=== PATIENT | female | born 2000 | race Hispanic/Latino ===

== ENCOUNTER 2020-02-02 08:01 | Emergency (ER) | payer OTHER, SELFPAY ==
--- NOTE | ~2020-02-02 | CT_ITS ---
EXAMINATION: CT abdomen pelvis w con DATE: 02/02/2020 10:13 INDICATION: Low back pain. Nausea. TECHNIQUE: Computed tomography (CT) of the abdomen and pelvis was performed with 100 cc Omnipaque 350 intravenous contrast. The dose-length product was 1119.15 mGy-cm. Automated exposure control and ite rative reconstruction technique were employed. COMPARISON: None. FINDINGS: Lung bases are unremarkable. Heart size normal. No significant pleural or pericardial effus ion. No significant vascular abnormality. No lymphadenopathy. Fatty infiltration of the liver. The spleen, pancreas, adrenal glands and kidneys are unremarkable. T here are gallstones. Mild gallbladder wall thickening. No significant biliary dilatation. No abnormal pelvic masses or fluid collections. No bowel obstruction. No evidence for appendicitis or diverticul itis. IMPRESSION: 1. Gallstones with gallbladder wall thickening. Consider cholecystitis in the appropriate clinical se tting. Reviewed, dictated and finalized at location A. IMPRESSION: 1. Gallstones with gallbladder wall thickening. Consider cholecystitis in the a ppropriate clinical setting.
[2020-02-02 08:07] VITALS: BP 122/89; PULSE 81; RESP 18; TEMP 36.2; O2SAT 99
--- NOTE | 2020-02-02 09:09 | ED.BACK ---
HPI - Back Pain/Injury General Chief Complaint: Back Pain/Injury Stated Complaint: back pain Time Seen by Provider: 02/02/20 08:14 Source: patient Mode of arrival: ambulatory Limitations: no limitations History of Present Illness HPI Narrative: This patient is a 19 year old female who presents for evaluation of bilateral lower back pain. She states this morning she woke up with bilateral lower back. She was unable to get comfortable no matter what position she is in. She has not taken anything for her pain. She has some nausea and upper abdominal pain. She denies urinary symptoms or complaints. MD elicited complaint: back pain Onset (ago): hour(s) Timing: constant Pain scale (0-10): 7 Similar Symptoms Previously: No Quality: dull Location: lumbar spine Relieving factors: none Context: unknown Associated symptoms: abdominal pain Related Data Allergies Allergy/AdvReac Type Severity Reaction Status Date / Time No Known Allergies Allergy Unknown Verified 02/02/20 08:10 Review of Systems Review of Systems: All systems reviewed & are unremarkable except as noted in HPI and below Constitutional: Constitutional: Denies chills and Denies fever(s) Gastrointestinal: Gastrointestinal: Reports abdominal pain, Denies constipation, Denies diarrhea, Reports nausea and Denies vomiting Genitourinary: Genitourinary: Denies hematuria, Denies nocturia, Denies dysuria and Denies urinary incontinence Musculoskeletal: Musculoskeletal: Reports back pain PMFSH Past Medical History Medical History (Updated 02/02/20 @ 13:21 by Courtney Fuentes CMA) GERD (gastroesophageal reflux disease) High cholesterol Surgical History Surgical History (Updated 02/02/20 @ 09:10 by Tayler Gilliland MD) Hx of tonsillectomy Family History Family History (Updated 02/02/20 @ 13:22 by Courtney Fuentes CMA) Father High cholesterol Grandparent Heart disease Diabetes mellitus Social History Social History (Updated 02/02/20 @ 13:23 by Courtney Fuentes CMA) Tobacco type: e-cigarettes/vaping Alcohol intake: current Substance use: never Living arrangements: with family Occupation/Education: occupation 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 HEAD: Normocephalic, atraumatic EYES: PERRLA and EOMI, conjunctiva clear without discharge THROAT:Mucous membranes moist, Oropharynx normal without erythema, exudate, peritonsillar swelling or fluctuance NECK: Supple, without lymphadenopathy or mass RESPIRATORY: No respiratory distress, Airway patent, Respirations non-labored, Clear to auscultation without rales, rhonchi or wheeze HEART: Regular rate and rhythm. No murmur heard. Normal peripheral pulses. ABDOMEN: Soft, RUQ, epigastric, nondistended, normal active bowel sounds. No masses. No rebound or guarding, No organomegaly. EXTREMITIES: No edema, normal strength with full range of motion. SKIN: Warm, dry, normal color without rash NEURO: Alert and oriented x3. CN 2-12 grossly intact. No focal deficits. PSYCH: Normal mood and affect. Course Reevaluation(s) Reevaluation #1: I have discsussed with patient and she reports she feels better. She is agreeable to outpatient management of her symptoms. Date: 02/02/20 Time: 11:36 Consultations Consultation #1: I have discussed case with DR. Grayson who agrees patient can be discharged on Augmentin for outpatient management. He will follow up as outpatient. Date: 02/02/20 Time: 11:36 Vital Signs Vital signs: Vital Signs Temperature 97.2 F L 02/02/20 08:07 Pulse Rate 81 02/02/20 08:07 Respiratory Rate 18 02/02/20 08:07 Blood Pressure 122/89 02/02/20 08:07 Pulse Oximetry 99 02/02/20 08:07 Temperature 97.2 F L 02/02/20 08:07 Pulse Rate 78 02/02/20 11:52 Respiratory Rate 1
[2020-02-02 09:14] LABS: Basophils Absolute Auto 0.1 K/mm3 (0.0-0.1); Basophils Percent Auto 0.3 % (0.2-1.2); Eosinophils Absolute Auto 0.2 K/mm3 (0-0.3); Eosinophils Percent Auto 1.4 % (0-4.4); Hematocrit 41.1 % (37.0-47.0); Hemoglobin 13.6 g/dL (12.0-15.0); Immature Granulocyte Absolute 0.05 K/mm3 (0.00-0.031); Immature Granulocyte Percent A 0.3 % (0-0.5); Lymphocytes Percent Auto 19.6 % (18.3-44.2); Mean Corpuscular HGB Conc 33.1 g/dl (32-36); Mean Corpuscular Hemoglobin 30.8 pg (26-34); Monocytes Absolute Auto 1.1 K/mm3 (0.1-0.6); Monocytes Percent Auto 7.2 % (2.6-8.5); Neutrophils Absolute Auto 10.9 K/mm3 (1.3-6.7); Neutrophils Percent Auto 71.2 % (45.5-73.1); Platelet Count Result 309 k/mm3 (150-375); Red Blood Count 4.42 M/mm3 (4.2-5.4); Red Cell Distribution Width 12.3 % (11.5-14.5); White Blood Count 15.3 K/mm3 (4.5-10.0)
[2020-02-02 09:14] LABS: Add Urine Microscopic? YES; Appearance Urine Clear (Clear); Bacteria Urine Trace /hpf; Bilirubin Urine Negative (Negative); Blood Urine Negative (Negative); Color Urine Yellow (Yellow); Glucose Urine UA Negative (Negative); Ketones Urine Negative (Negative); Leukocyte Esterase Ur 1+ LEU/UL (Negative); Mucus Urine Few /lpf; Nitrate Urine Negative (Negative); Protein Urine Negative (Negative); Specific Grav Ur 1.024 (1.001-1.035); Squamous Epithelial Cell Urine Many /hpf (Few); Urobilinogen Urine Negative mg/dL (<2.0)
[2020-02-02 09:28] LABS: Alanine Aminotransferase 49 U/L (4-35); Albumin Level 4.3 g/dL (3.7-5.6); Alkaline Phosphatase 92 U/L (45-116); Aspartate Amino Transferase 36 U/L (14-36); Bilirubin,Total 0.2 mg/dL (0.2-1.3); Blood Urea Nitrogen 11 mg/dL (8-21); Calcium 8.6 mg/dL (8.9-10.7); Carbon Dioxide 25 mmol/L (22-30); Chloride 106 mmol/L (98-107); Estimated CRCL calculation 135 ml/min; Estimated Glomerular Filt Rate > 60; Glucose 104 mg/dL (65-105); Lipase 30 U/L (23-300); Potassium 4.3 mmol/L (3.4-5.0); Sodium 137 mmol/L (134-143)
[2020-02-02 10:50] VITALS: BP 133/75; PULSE 84; RESP 18; O2SAT 100
[2020-02-02 11:52] VITALS: BP 129/65; PULSE 78; RESP 16; O2SAT 98
== END 2020-02-02 11:55 | disposition home or self-care (01) ==
PROVIDERS: Emergency Provider General Practice; PCP Physician Assistant
DX: K80.00 Calculus of gallbladder with acute cholecystitis without obstruction (principal); K21.9 Gastro-esophageal reflux disease without esophagitis; E78.00 Pure hypercholesterolemia, unspecified; F17.290 Nicotine dependence, other tobacco product, uncomplicated
CPT/HCPCS: 36415; 74177; 80053; 81001; 81025; 83690; 85025; 96374; 99284; J0131; Q9967

== ENCOUNTER 2020-02-06 00:18 | Outpatient (CLI) | payer OTHER, SELFPAY ==
[2020-02-07 17:28] LABS: SARS-CoV-2 RNA PCR Negative
== END 2020-02-06 00:19 | disposition home or self-care (01) ==
LOC: ANHCOVIDDT 00:18
PROVIDERS: PCP Physician Assistant; Visit Provider Surgery
DX: Z01.818 Encounter for other preprocedural examination (principal); Z11.59 Encounter for screening for other viral diseases
CPT/HCPCS: 87635; C9803; U0003

== ENCOUNTER 2020-02-09 02:19 | Day surgery (SDC) | payer OTHER, SELFPAY ==
[2020-02-03 13:08] VITALS: BMI 39.6
[2020-02-09] VITALS (7 sets, daily range): BP systolic 111–122; BP diastolic 54–94; PULSE 69–84; RESP 10–28; TEMP 36.5–36.9; O2SAT 98–100
[2020-02-09] MEDS: LACTATED RINGERS 1,000 ML 30 ML IV CONT ×2 (08:45→12:34)
--- NOTE | 2020-02-09 09:57 | WPDANESEPPF ---
Anes - Initial Pre Proc Eval Procedure: Operation Date: 02/09/20 10:30 Proposed Procedures p Laparoscopic Cholecystectomy, Possible Intraoperative Cholangiogram, Possible Open Cholectomy - Robert Grayson MD Date/Time: 02/09/20 09:57 Surgeon: Robert Grayson MD Pre Op Diagnosis: chronic Cholecystitis with cholelithiasis Patient Data Age: 19 Gender: F Height: 5 ft 1 in Weight: 95.25 kg Allergies Allergy/AdvReac Type Severity Reaction Status Date / Time No Known Allergies Allergy Unknown Verified 02/09/20 09:55 Home Medications Medication Instructions Recorded Confirmed Type amoxicillin-pot clavulanate 1 tablet PO Q12H #10 tablet 02/02/20 02/09/20 Rx famotidine 40 mg PO DAILY 02/03/20 02/09/20 History hydrocodone 5 mg-acetaminophen 325 1 tablet PO Q6H PRN #10 tablet 02/03/20 02/09/20 Rx mg tablet fluconazole 150 mg tablet 150 mg PO ONCE #1 tablet 02/07/20 02/09/20 Rx Laboratory Tests 02/09/20 09:30 Amylase Pending Patient hx anesthesia problems: none Family hx anesthesia problems: none PMFSH Past Medical History Medical History GERD (gastroesophageal reflux disease) High cholesterol Surgical History Surgical History Hx of tonsillectomy Family History Family History Father High cholesterol Grandparent Heart disease Diabetes mellitus Social History Social History Tobacco type: e-cigarettes/vaping Additional smoking assessment comments: USING FOR 1 YEAR Alcohol intake: current Substance use: never Substance use type: marijuana Last use: 02/01/20 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 Questions were solicited and answers provided to the satisfaction of the patient/family/POA.
[2020-02-09 10:01] LABS: Amylase 77 U/L (30-100)
--- NOTE | 2020-02-09 10:29 | WPDHPUPDATE1 ---
History and Physical Update Update Date/Time: 02/09/20 10:29 History and Physical has been reviewed, including an updated exam of the patient. There are NO changes in the patient's condition. Risks, benefits, and alternatives have been discussed and questions answered. Patient agrees to proceed with procedure.
[2020-02-09] MEDS: ceFAZolin 2 GM/D5W 50 ML 2 GM/50 ML BAG IVPB (11:00)
[2020-02-09] MEDS: BUPIVACAINE/EPINEPHRINE 0.5% 30 ML VIAL INFILTRATE (11:34)
--- NOTE | 2020-02-09 12:43 | PM.PROC ---
Procedure Note - Detailed Date of procedure: 02/09/20 Pre-op diagnosis: chronic Cholecystitis with cholelithiasis Chronic Cholecystitis with Cholelithiasis Procedure performed: Laparoscopic Cholecystectomy Description of procedure: Patient was seen preoperatively in the holding area and risks, benefits and alternatives confirmed. Patient was taken to the operating room and general anesthesia was induced. A time out was then preformed with the surgery team confirming patient and site of surgery. The abdomen was prepped and draped in the usual sterile fashion. Incision was made just below the umbilicus with an 11 blade knife. I placed 2 stay sutures of O- Vicryl on either side of the mid-line fascia beneath the umbilicus and was then able to slide in the Cheek cannula through the fascial defect into the peritoneum. First under low flow and then under high flow the abdomen was insufflated with carbon dioxide never exceeding a pressure of 14. Three 5 mm trocars were then introduced under direct vision. The following trocars were introduced under direct vision: a 5 mm in the epigastrium and two 5 mm trocars along the right costal margin laterally in the subcostal area. There was no adhesions to the underside of the gallbladder. I then carefully used the L-shaped cautery and the [place] dissector to dissect out the triangle of Calot. I then was able to dissect out both the cystic duct and cystic artery and identify a window of safety. The gall bladder was grasped and the cystic duct and artery were dissected free and clipped with an 5 mm endo-clip digital coordinator. The cystic duct and artery were clipped with use of 2 clips on the patient's side 1 on the gallbladder side utilizing a 5 mm endoclip-digital coordinator. The cystic duct was then transected. The cystic artery was also transected at this point. The gall bladder was removed using electrocautery and then removed from the abdomen using a large 10 mm grasper via the umbilical incision. In order to get the large stone out of the abdomen within the gallbladder I did make the fascial defect slightly larger with Crawford scissors. The trocars were removed visualizing hemostasis and the remaining gas evacuated. The large trocar site at the umbilicus was closed with use of the 2 stay sutures of 0 Vicryl mentioned above and also a figure of 8 and one simple O-Vicryl suture. The 2 stay sutures mentioned above on either side of the fascia were also tied together to help approximate this midline fascia. Further local anesthetic was placed into each incision for postop pain control. The skin incisions were closed with subcuticular suture of 4-0 Monocryl. Surgical glue then was applied to all the incisions. Patient tolerated the procedure well was taken to the recovery room in good condition. Anesthesia: GETA Surgeon: Robert Grayson MD Security Professional: Mike ALBERTO, OR assistant corporate controller Estimated blood loss (mL): 10 Drains: No Packing: No Pathology: yes (Gallbladder) Complications: No immediate complications Condition: stable Disposition: PACU Findings: Gallbladder had a good number of medium and small stones within it. There was no significant inflammation of the gallbladder upon initial inspection or dissection.
[2020-02-09] MEDS: ONDANSETRON INJ 4 MG/2 ML VIAL IV PUSH (12:57)
== END 2020-02-09 14:23 | disposition home or self-care (01) ==
PROVIDERS: PCP Physician Assistant; Visit Provider Surgery
PROC: 0FT44ZZ Resection of Gallbladder, Percutaneous Endoscopic Approach (ICD-10-PCS; CPT 47562; principal; 2020-02-09 10:30)
DX: K80.10 Calculus of gallbladder with chronic cholecystitis without obstruction (principal); K21.9 Gastro-esophageal reflux disease without esophagitis; E78.00 Pure hypercholesterolemia, unspecified; F17.290 Nicotine dependence, other tobacco product, uncomplicated; F12.90 Cannabis use, unspecified, uncomplicated
CPT/HCPCS: 47562; 36415; 82150; 88304; J0131; J0690; J1100; J1200; J2250; J2405; J2704; J2710; J3010; J7120

== ENCOUNTER 2020-02-20 09:36 | Outpatient (CLI) | payer OTHER, SELFPAY ==
[2020-02-20 11:23] LABS: Alanine Aminotransferase 21 U/L (4-35); Albumin Level 4.5 g/dL (3.7-5.6); Alkaline Phosphatase 83 U/L (45-116); Aspartate Amino Transferase 25 U/L (14-36); Bilirubin,Total 0.5 mg/dL (0.2-1.3)
== END 2020-02-20 09:37 | disposition home or self-care (01) ==
PROVIDERS: PCP Physician Assistant; Visit Provider Nurse Practitioner Family
DX: K80.10 Calculus of gallbladder with chronic cholecystitis without obstruction (principal)
CPT/HCPCS: 36415; 80076

== ENCOUNTER 2020-03-25 07:57 | Emergency (ER) | payer OTHER, SELFPAY ==
[2020-03-25 08:01] VITALS: BP 123/82; PULSE 91; RESP 17; TEMP 36.4; O2SAT 100
[2020-03-25 08:27] LABS: Basophils Absolute Auto 0.1 K/mm3 (0.0-0.1); Basophils Percent Auto 0.6 % (0.2-1.2); Eosinophils Absolute Auto 0.2 K/mm3 (0-0.3); Eosinophils Percent Auto 1.4 % (0-4.4); Hematocrit 42.9 % (37.0-47.0); Hemoglobin 14.3 g/dL (12.0-15.0); Immature Granulocyte Absolute 0.06 K/mm3 (0.00-0.031); Immature Granulocyte Percent A 0.6 % (0-0.5); Lymphocytes Absolute Auto 3.45 K/mm3 (0.9-3.2); Lymphocytes Percent Auto 33.2 % (18.3-44.2); Mean Corpuscular HGB Conc 33.3 g/dl (32-36); Mean Corpuscular Hemoglobin 30.7 pg (26-34); Mean Corpuscular Volume 92.1 fl (80-100); Mean Platelet Volume 10.1 fl (7.4-10.4); Monocytes Percent Auto 9.9 % (2.6-8.5); Neutrophils Absolute Auto 5.7 K/mm3 (1.3-6.7); Neutrophils Percent Auto 54.3 % (45.5-73.1); Platelet Count Result 321 k/mm3 (150-375); Red Blood Count 4.66 M/mm3 (4.2-5.4); Red Cell Distribution Width 12.5 % (11.5-14.5); White Blood Count 10.4 K/mm3 (4.5-10.0)
[2020-03-25 08:32] LABS: Add Urine Microscopic? YES; Appearance Urine Cloudy (Clear); Bacteria Urine Trace /hpf; Bilirubin Urine Negative (Negative); Color Urine Yellow (Yellow); Glucose Urine UA Negative (Negative); Ketones Urine Trace mg/dL (Negative); Leukocyte Esterase Ur 1+ LEU/UL (Negative); Mucus Urine Heavy /lpf; Nitrate Urine Negative (Negative); Protein Urine 2+ mg/dL (Negative); Specific Grav Ur 1.029 (1.001-1.035); Squamous Epithelial Cell Urine Many /hpf (Few)
[2020-03-25 08:37] LABS: Blood Urine Negative (Negative)
[2020-03-25 08:40] LABS: Alanine Aminotransferase 23 U/L (4-35); Albumin Level 4.8 g/dL (3.7-5.6); Alkaline Phosphatase 104 U/L (45-116); Anion Gap 10 mmol/L (8-16); Aspartate Amino Transferase 27 U/L (14-36); Bilirubin,Total 0.7 mg/dL (0.2-1.3); Blood Urea Nitrogen 9 mg/dL (8-21); Calcium 9.4 mg/dL (8.9-10.7); Carbon Dioxide 24 mmol/L (22-30); Chloride 106 mmol/L (98-107); Estimated CRCL calculation 117 ml/min; Estimated Glomerular Filt Rate > 60; Glucose 108 mg/dL (65-105); Lipase 30 U/L (23-300); Potassium 3.8 mmol/L (3.4-5.0); Sodium 140 mmol/L (134-143)
--- NOTE | 2020-03-25 09:06 | ED.NAVMDI ---
HPI - Nausea/Vomiting/Diarrhea General Chief complaint: Nausea/Vomiting/Diarrhea Stated complaint: n/v x 3 days Time Seen by Provider: 03/25/20 08:49 Source: patient and family History of Present Illness HPI Narrative: 19 years old white female presents with nausea for the last 2 days, intermittent vomiting for the last 3 days average of 3 times a day. Patient is a status post cholecystectomy 5 weeks ago. Patient reports a history of nausea off and on for months. Patient have a lot of stress lately, patient smokes occasionally, drinks occasionally and uses marijuana daily. Patient is sexually active, last menstrual period 3 weeks ago. Patient denies any fever, chills, abdominal pain, chest pain, urinary symptoms or constipation. Related Data Allergies Allergy/AdvReac Type Severity Reaction Status Date / Time No Known Allergies Allergy Unknown Verified 03/25/20 08:03 Review of Systems Review of Systems: Narrative: CONSTITUTIONAL: Denies fever, chills, or sweats. EYES: Denies visual changes, redness, or discharge. ENT: Denies rhinorrhea, congestion, sore throat, or otalgia. CARDIOVASCULAR: Denies chest pain, palpitations, or edema. RESPIRATORY: Denies cough or dyspnea. GASTROINTESTINAL: Reports nausea and vomiting GENITOURINARY: Denies dysuria or hematuria. SKIN: Denies rash or itching. MUSCULOSKELETAL: Denies back pain, joint pain, or myalgia. NEUROLOGIC: Denies headache, numbness, or weakness. PSYCHIATRIC: Denies anxiety or depression. 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 Musculoskeletal: Normal range of motion, nontender back Neurologic: Alert and oriented ?3, SHANK SCOURER is normal as tested, no gross motor deficit Course Course Emergency Course: Improving Vital Signs Vital signs: Vital Signs Temperature 36.4 C L 03/25/20 08:01 Pulse Rate 91 03/25/20 08:01 Respiratory Rate 17 03/25/20 08:01 Blood Pressure 123/82 03/25/20 08:01 Pulse Oximetry 100 03/25/20 08:01 Temperature 36.4 C L 03/25/20 08:01 Pulse Rate 91 03/25/20 08:01 Respiratory Rate 17 03/25/20 08:01 Blood Pressure 123/82 03/25/20 08:01 Pulse Oximetry 100 03/25/20 08:01 MDM - Nausea/Vomiting/Diarrhea MDM Narrative Medical decision making narrative: I plan to get labs, UA, test and start IV fluid. Patient nausea and vomiting cou
[2020-03-25] MEDS: SODIUM CHLORIDE 0.9% IV 1,000 ML 999 ML IV CONT (09:13)
[2020-03-25 09:50] VITALS: BP 116/59; PULSE 72; RESP 16; O2SAT 100
--- NOTE | 2020-04-05 18:39 | PC.NURSE ---
LATE ENTRY This note is being entered to document information to the patient's record. The following information was omitted on [04/05/20], by [Allison ABBASI stopped at 1013 on 03/25/20].
== END 2020-03-25 09:51 | disposition home or self-care (01) ==
PROVIDERS: Emergency Provider Emergency Medicine; PCP Physician Assistant
DX: R11.2 Nausea with vomiting, unspecified (principal); K21.9 Gastro-esophageal reflux disease without esophagitis; E78.00 Pure hypercholesterolemia, unspecified; F17.290 Nicotine dependence, other tobacco product, uncomplicated; F12.90 Cannabis use, unspecified, uncomplicated
CPT/HCPCS: 36415; 80053; 81001; 81025; 83690; 85025; 87077; 87086; 87088; 96361; 96374; 99284; J2060; J7030

== ENCOUNTER 2020-06-29 12:43 | Outpatient (CLI) | payer OTHER, SELFPAY | END 2020-06-29 12:44 | disposition home or self-care (01) | LOC: ANHAUDIO 12:45 | PROVIDERS: PCP Physician Assistant; Visit Provider Otolaryngology | DX: H93.12 Tinnitus, left ear (principal); H90.0 Conductive hearing loss, bilateral | CPT/HCPCS: 92557; 92567 ==

== ENCOUNTER → 2020-11-16 00:26 | Outpatient (CLI) | payer OTHER, SELFPAY ==
[2020-11-16 20:45] LABS: SARS-CoV-2 RNA PCR Negative
== END ==
PROVIDERS: PCP Physician Assistant; Visit Provider Otolaryngology
DX: Z01.812 Encounter for preprocedural laboratory examination (principal); Z20.822 Contact with and (suspected) exposure to COVID-19
CPT/HCPCS: C9803; U0003; U0005

== ENCOUNTER 2020-11-19 00:28 | Day surgery (SDC) | payer OTHER, SELFPAY ==
[2020-11-08 11:55] VITALS: BMI 38.9
--- NOTE | 2020-11-18 10:30 | PM.IMHP ---
H&P: HPI History of Present Illness Date/Time: 11/18/20 10:30 19-year-old female presents for planned surgical procedure right-sided tympanoplasty. Reports no new symptoms or changes in her medical history. Chief Complaint: Right-sided tympanic membrane perforation, right-sided hearing loss Review of Systems Constitutional: Constitutional: Denies fatigue, Denies fever(s) and Denies lethargy Eyes: Eyes: Denies blurry vision and Denies change in vision ENT: Reports as per HPI Cardiovascular: Cardiovascular: Denies chest pain Respiratory: Respiratory: Denies cough Endocrine: Endocrine: Denies fatigue Hematologic/Lymphatic: Hematologic/Lymphatic: Denies easy bleeding, Denies easy bruising and Denies lymphadenopathy Allergic/Immunologic: Allergic/Immunologic: Denies seasonal rhinorrhea [facility] Past Medical History Medical History (Updated 10/05/20 @ 16:12 by William Guardado MD) GERD (gastroesophageal reflux disease) High cholesterol Surgical History Surgical History Hx laparoscopic cholecystectomy 02/09/2020 Hx of tonsillectomy Family History Family History Father High cholesterol Grandparent Heart disease Diabetes mellitus Social History Social History Smoking status: Former smoker Tobacco type: e-cigarettes/vaping Smoking end date: 08/06/20 Additional smoking assessment comments: USING FOR 1 YEAR Alcohol intake: current Drinks per week: 2 Substance use: current Substance use type: marijuana Other substance usage details: ONCE/DAY BEFORE BED Last use: 11/07/20 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 Gender identity (if verbalized by the patient): Female Spiritual care concerns: No Meds Home Medications and Allergies Home Medications Medication Instructions Recorded Confirmed Type fluticasone propionate 50 1 spray INTRANASAL DAILY 05/26/20 11/08/20 History mcg/actuation nasal spray,suspension albuterol sulfate 1 inh INHALATION Q4H PRN 11/08/20 11/08/20 History fluticasone propionate 50 1 - 2 spray INTRANASAL BID #16 ml 11/08/20 Rx mcg/actuation nasal spray,suspension Allergies Allergy/AdvReac Type Severity Reaction Status Date / Time No Known Allergies Allergy Unknown Verified 11/08/20 11:52 Exam Const: General: cooperative, healthy appearing, comfortable, well developed and alert HENMT: Head: normal to inspection, normocephalic and atraumatic Ears: hearing grossly normal bilaterally, external ears normal, TM's abnormal bilaterally ( Right anterior perforation left smaller perforation) and EAC's normal General nose exam: Normal external nose present, Normal nares present, No nasal polyps present, Normal nasal mucous membranes and turbinates present and Normal septum present Face and sinus: normal facial exam Mouth: Yes Normal oral and palatal mucosa present, Yes lip normal, Yes tongue normal, Yes oropharynx normal and Yes moist mucous membranes Teeth and gingiva: dentition normal and gingiva normal Throat: posterior oropharynx normal, tonsils normal and uvula midline Eyes: General: appearance normal, both eyes and all related structures Periorbital: periorbital findings normal Eyelids: eyelids normal Conjunctivae: conjunctivae normal Sclera: sclerae normal Neck: Neck: normal visual inspection, full ROM and no lymphadenopathy Thyroid: thyroid normal Lymphatic: no lymphadenopathy noted Resp: Effort & Inspection: normal respiratory effort and able to speak in complete sentences Cardio: Jugular venous distension: no JVD Neuro: Cranial nerves: Yes CN's II-XII intact bilaterally Assessment and Plan Assessment and plan (1) Unspecified perforation of tympanic membrane, right ear: Code(s): H72.91 - Unspecified perforation of tympanic membrane, right ear
[2020-11-19] VITALS (7 sets, daily range): BP systolic 107–123; BP diastolic 69–91; PULSE 94–114; RESP 12–24; TEMP 36.6–37.1; O2SAT 95–100
[2020-11-19] MEDS: ACETAMINOPHEN 500 MG TABLET 1000 MG PO (06:38)
--- NOTE | 2020-11-19 06:47 | WPDANESEPPF ---
Anes - Initial Pre Proc Eval Procedure: Operation Date: 11/19/20 07:30 Proposed Procedures p Right Tympanoplasty - William Guardado MD Date/Time: 11/19/20 06:47 Surgeon: William Guardado MD Pre Op Diagnosis: right TM perforation Patient Data Age: 19 Gender: F Height: 5 ft 1.5 in Weight: 95 kg Allergies Allergy/AdvReac Type Severity Reaction Status Date / Time No Known Allergies Allergy Unknown Verified 11/19/20 06:36 Home Medications Medication Instructions Recorded Confirmed Type fluticasone propionate 50 1 spray INTRANASAL DAILY 05/26/20 11/19/20 History mcg/actuation nasal spray,suspension albuterol sulfate 1 inh INHALATION Q4H PRN 11/08/20 11/19/20 History Patient hx anesthesia problems: none Family hx anesthesia problems: none PMFSH Past Medical History Medical History Anxiety Asthma Depression GERD (gastroesophageal reflux disease) High cholesterol Surgical History Surgical History Hx laparoscopic cholecystectomy 02/09/2020 Hx of tonsillectomy Family History Family History Father High cholesterol Grandparent Heart disease Diabetes mellitus Social History Social History Smoking status: Former smoker Tobacco type: e-cigarettes/vaping Smoking end date: 08/06/20 Additional smoking assessment comments: USING FOR 1 YEAR Alcohol intake: current Drinks per week: 2 Substance use: current Substance use type: marijuana Other substance usage details: ONCE/DAY BEFORE BED Last use: 11/07/20 Living arrangements: with family 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 Questions were solicited and answers provided to the satisfaction of the patient/family/POA.
[2020-11-19] MEDS: LACTATED RINGERS 1,000 ML 30 ML IV CONT ×2 (06:49→11:30)
--- NOTE | 2020-11-19 07:08 | WPDHPUPDATE1 ---
History and Physical Update Update Date/Time: 11/19/20 07:08 History and Physical has been reviewed, including an updated exam of the patient. There are NO changes in the patient's condition. Risks, benefits, and alternatives have been discussed and questions answered. Patient agrees to proceed with procedure.
[2020-11-19] MEDS: ceFAZolin 2 GM/D5W 50 ML 2 GM/50 ML BAG IVPB (07:23)
[2020-11-19] MEDS: CIPROFLOXACIN HCL 0.3% OP SOLN 2.5 ML BTL 4 DROP EACH EAR (07:38)
[2020-11-19] MEDS: LIDO 1%/EPINEPHRINE 1:100,000 50 ML VIAL INFILTRATE (07:38)
[2020-11-19] MEDS: EPINEPHrine HCL INJ 1 MG/ML AMPUL IRRIGATION (07:39)
[2020-11-19] MEDS: NEOMYCIN/POLYMYXIN B/PRAMOXINE 15 GM CREAM 1 APPLIC TOPICAL (09:06)
--- NOTE | 2020-11-19 11:44 | PM.PROC ---
Procedure Note - Detailed Date of procedure: 11/19/20 Pre-op diagnosis: right TM perforation Post-op diagnosis: same Procedure performed: Right-sided fascial graft tympanoplasty Description of procedure: The patient was correctly I identified and consent was verified in the preoperative holding area. The patient was then brought to the operating room and a time-out was performed. General anesthesia was induced and LMA was secured the patient's airway to the left. The bed was then rotated. The patient was then prepped and draped for the aforementioned procedure. The right ear was examined and anterior large approximately 20% perforation was noted. This was rimmed. The canal was then injected in 4 quadrants with 1% lidocaine with 1 100,000 parts epinephrine. The postauricular incision was then also injected approximately 2 cm behind the sulcus. This was incised with 15 blade and dissection was carried down to the level of the temporalis fascia. A large graft was harvested and set aside to dry after being pressed for 5 minutes. The incision was then carried down to the level of the periosteum which was elevated revealing the spine of Henle and lateral EAC. Dissection occurred down incision was made in the EAC. The ear was then suspended anteriorly with a Master drain and Weitlaner retractor. The canal skin was then elevated anteriorly as well as anterior elevation was performed given the large anterior as well as inferior overhangs. A curette was utilized to widen these overhangs. Extreme difficulty was encountered with raising the annulus and a small portion was elevated somewhat inferiorly and anteriorly. The temporalis fascia graft was then placed over Gelfoam soaked with antibiotic which had been placed the middle ear. All contacts all portions of the perforation were in contact with the graft. This was then laid back in place and Gelfoam was placed over the graft and tympanic membrane. The ear canal was then placed back in place and a skin tear was noted from the Master drain. The skin in the EAC was put back in place and packed with antibiotic soaked Gelfoam. The postauricular incision was closed in its deep layers with 4-0 and 3-0 interrupted Vicryl and the skin was closed with a 5 0 running fast gut suture. Antibiotic soaked excuse me cotton ball was placed in the lateral EAC and a Smith dressing was applied. This marked the end the procedure. Care the patient was turned over to Anesthesiology. I performed all dictated portions. Anesthesia: [facility] Surgeon: William Guardado MD Estimated blood loss (mL): 5 Drains: No Complications: Other complications (EAC skin tear) Condition: stable Disposition: PACU Findings: Narrowed EAC bone curette needed skin tear occurred in the EAC obscuring view making the case more difficult fascial graft in contact with perforation following procedure
[2020-11-19] MEDS: oxyCODONE HCL (*CRX) 5 MG TAB IR PO (12:47)
== END 2020-11-19 13:23 | disposition home or self-care (01) ==
PROVIDERS: PCP Family Medicine; Visit Provider Otolaryngology
PROC: (CPT 69631; principal; 2020-11-19 07:30)
DX: H72.91 Unspecified perforation of tympanic membrane, right ear (principal); H91.93 Unspecified hearing loss, bilateral; F41.9 Anxiety disorder, unspecified; F32.9 Major depressive disorder, single episode, unspecified; J45.909 Unspecified asthma, uncomplicated; Z79.51 Long term (current) use of inhaled steroids; Z87.891 Personal history of nicotine dependence; F12.90 Cannabis use, unspecified, uncomplicated; E66.9 Obesity, unspecified
CPT/HCPCS: 69631; A9270; J0171; J0690; J1100; J2250; J2405; J2704; J3010; J7120

== ENCOUNTER 2021-03-27 17:19 | Emergency (ER) | payer OTHER, SELFPAY ==
[2021-03-27 17:28] VITALS: BP 137/89; PULSE 89; RESP 18; TEMP 36.2; O2SAT 100
[2021-03-27 19:46] VITALS: BP 127/81; PULSE 91; RESP 17; TEMP 37.3; O2SAT 100
--- NOTE | 2021-03-27 20:07 | ED.GENADULT ---
HPI - General Adult General Chief complaint: Skin/Abscess/Foreign Body Stated complaint: BUMP ON ARM Time Seen by Provider: 03/27/21 19:42 History of Present Illness HPI narrative: Patient is a 20-year-old female who presents to the ER with swelling to her left arm. Over the distal aspect of the biceps near its insertion at the elbow. Reports falling over the last day with pain with flexion. No known trauma. She does do some lifting at work moving boxes. No numbness or tingling in the arm. No redness of skin or abscess. Related Data Home Medications Medication Instructions Recorded Confirmed fluticasone propionate 50 1 spray INTRANASAL DAILY 05/26/20 01/17/21 mcg/actuation nasal spray,suspension albuterol sulfate 1 inh INHALATION Q4H PRN 11/08/20 01/17/21 sertraline mg 03/27/21 Allergies Allergy/AdvReac Type Severity Reaction Status Date / Time No Known Allergies Allergy Unknown Verified 03/27/21 19:47 Review of Systems Constitutional: Constitutional: Denies chills and Denies fever(s) Musculoskeletal: Musculoskeletal: Denies back pain, Denies arthralgias, Denies joint swelling and Denies muscle cramps Integumentary/Breasts: Skin/Breast: Denies pruritus, Denies erythema and Denies rash Neurologic: Denies focal weakness and Denies numbness PMFSH Past Medical History Medical History Anxiety Asthma Depression GERD (gastroesophageal reflux disease) High cholesterol Surgical History Surgical History Hx laparoscopic cholecystectomy 02/09/2020 Hx of tonsillectomy Family History Family History Father High cholesterol Grandparent Heart disease Diabetes mellitus Social History Social History Smoking status: Former smoker Tobacco type: e-cigarettes/vaping Smoking end date: 08/06/20 Additional smoking assessment comments: USING FOR 1 YEAR Alcohol intake: current Drinks per week: 2 Substance use: current Substance use type: marijuana Other substance usage details: ONCE/DAY BEFORE BED Last use: 11/07/20 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 HEAD: Normocephalic, atraumatic. EXTREMITIES: Slight swelling distal aspect biceps left upper extremity near the elbow. Normal flexion extension elbow. Normal range of motion of the left shoulder. Biceps tendon intact. SKIN: Warm, dry, no rash. NEURO: Alert and oriented x3. PSYCH: Normal mood and affect. Course Course Emergency Course: Discussed diagnosis and treatment plan. Recommend NSAIDs and ice at home. Will give lifting restriction for 5 days. Vital Signs Vital signs: Vital Signs Temperature 97.2 F L 03/27/21 17:28 Pulse Rate 89 03/27/21 17:28 Respiratory Rate 18 03/27/21 17:28 Blood Pressure 137/89 03/27/21 17:28 Pulse Oximetry 100 03/27/21 17:28 Temperature 99.1 F 03/27/21 19:46 Pulse Rate 91 03/27/21 19:46 Respiratory Rate 17 03/27/21 19:46 Blood Pressure 127/81 03/27/21 19:46 Pulse Oximetry 100 03/27/21 19:46 Medical Decision Making Vital Signs Vital Signs: Vital Signs Temperature 97.2 F L 03/27/21 17:28 Pulse Rate 89 03/27/21 17:28 Respiratory Rate 18 03/27/21 17:28 Blood Pressure 137/89 03/27/21 17:28 Pulse Oximetry 100 03/27/21 17:28 Temperature 99.1 F 03/27/21 19:46 Pulse Rate 91 03/27/21 19:46 Respiratory Rate 17 03/27/21 19:46 Blood Pressure 127/81 03/27/21 19:46 Pulse Oximetry 100 03/27/21 19:46 Discharge Plan Discharge Clinical Impression: Biceps tendinitis Patient Disposition: Home, Self-Care
== END 2021-03-27 20:23 | disposition home or self-care (01) ==
LOC: ANHED 20:10
PROVIDERS: Emergency Provider Emergency Medicine; PCP Family Medicine
DX: M75.22 Bicipital tendinitis, left shoulder (principal); F41.9 Anxiety disorder, unspecified; F32.9 Major depressive disorder, single episode, unspecified; Z87.891 Personal history of nicotine dependence
CPT/HCPCS: 99283

== ENCOUNTER 2021-06-28 11:04 | Emergency (ER) | payer OTHER, SELFPAY ==
[2021-06-28 11:12] VITALS: BP 126/81; PULSE 86; RESP 16; TEMP 36.9; O2SAT 100
--- NOTE | 2021-06-28 12:09 | ED.BACK ---
HPI - Back Pain/Injury General Chief Complaint: Back Pain/Injury Stated Complaint: Upper Back Pain Time Seen by Provider: 06/28/21 12:00 Source: patient and RN notes reviewed Mode of arrival: ambulatory Limitations: no limitations History of Present Illness HPI Narrative: He has been is a 20-year-old female patient who complains of pain in her left shoulder and back. Patient states the pain is worse with a deep breath. Patient also states it is worse with shrugging her shoulders and certain movements. Patient states the pain started yesterday. Patient denies any other symptoms. Patient denies any shortness of breath, cough, or any other symptoms; patient denies any injury to the area. Patient denies any increase in exercise or any lifting. MD elicited complaint: back pain Related Data Home Medications Medication Instructions Recorded Confirmed sertraline mg 03/27/21 Allergies Allergy/AdvReac Type Severity Reaction Status Date / Time No Known Allergies Allergy Unknown Verified 03/27/21 19:47 Review of Systems Review of Systems: CONSTITUTIONAL: Denies body aches, fever, chills, or sweats. EYES: Denies visual changes, redness, or discharge. ENT: Denies rhinorrhea, congestion, sore throat, or otalgia. CARDIOVASCULAR: Denies chest pain, palpitations, or edema. RESPIRATORY: Denies cough or dyspnea. GASTROINTESTINAL: Denies abdominal pain, nausea, vomiting, or diarrhea. GENITOURINARY: Denies dysuria or hematuria. SKIN: Denies rash, itching, or wounds. MUSCULOSKELETAL: + back pain, denies joint pain, or myalgia. NEUROLOGIC: Denies headache, numbness, tingling, or weakness. PSYCH: Denies depression or anxiety. All systems reviewed & are unremarkable except as noted in HPI and below [facility] Past Medical History Medical History Anxiety Asthma Depression GERD (gastroesophageal reflux disease) High cholesterol Surgical History Surgical History Hx laparoscopic cholecystectomy 02/09/2020 Hx of tonsillectomy Family History Family History Father High cholesterol Grandparent Heart disease Diabetes mellitus Social History Social History Smoking status: Former smoker Tobacco type: e-cigarettes/vaping Smoking end date: 08/06/20 Additional smoking assessment comments: USING FOR 1 YEAR Alcohol intake: current Drinks per week: 2 Substance use: current Substance use type: marijuana Other substance usage details: ONCE/DAY BEFORE BED Last use: 11/07/20 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 Please see nursing chart for further information. There is no relevant family history pertinent to the presenting complaint Exam Narrative: GENERAL: Well-appearing, well-nourished, and in no acute distress. HEAD: Normocephalic, atraumatic. EYES: EOMI. No redness or drainage. Conjunctivae normal. ENT: Mucous membranes pink and moist. Nares clear. No rhinorrhea. TMs normal bilaterally. Throat normal. Uvula midline. NECK: Normal AROM. Supple. No lymphadenopathy. CHEST: No respiratory distress. Clear to auscultation. HEART: Regular rate and rhythm. No murmur appreciated. Normal peripheral pulses. ABDOMEN: Soft, nontender, nondistended, normal active bowel sounds. MUSCULOSKELETAL: No bony tenderness;pain with palpation along left trapezius muscle; increased pain iwth shoulder shrug and forward flexion. EXTREMITIES: Normal range of motion. No edema. SKIN: Warm, dry, no rash. Capillary refill normal. Normal skin turgor. NEURO: No focal deficits.
== END 2021-06-28 12:18 | disposition home or self-care (01) ==
PROVIDERS: Emergency Provider Nurse Practitioner Family; PCP Family Medicine
DX: S46.812A Strain of other muscles, fascia and tendons at shoulder and upper arm level, left arm, initial encounter (principal); X58.XXXA Exposure to other specified factors, initial encounter; J45.909 Unspecified asthma, uncomplicated; K21.9 Gastro-esophageal reflux disease without esophagitis; E78.00 Pure hypercholesterolemia, unspecified
CPT/HCPCS: 99213; G0463

== ENCOUNTER 2021-07-24 15:52 | Emergency (ER) | payer OTHER, SELFPAY ==
--- NOTE | ~2021-07-24 | CT_ITS ---
EXAMINATION: CT abdomen pelvis w con DATE: 07/24/2021 19:32 INDICATION: Right lower quadrant pain. Nausea, vomiting and diarrhea. TECHNIQUE: Computed tomography (CT) of the abdomen and pelvis was performed with 100 cc Omnipaque 350 intravenous contrast. The dose-length product was 1016.21 mGy-cm. Automated exposure control and ite rative reconstruction technique were employed. COMPARISON: CT dated 02/02/2020. FINDINGS: Lung bases are unremarkable. Heart size normal. No significant vascular abnormality. Status post cholecystectomy. There are multiple enlarged ileocolic lymph nodes. Normal appendix. Fatty infiltration of the liver. Status post cholecystectomy. The spleen, pancreas, adrenal glands an d kidneys are unremarkable. Colonic diverticulosis without evidence for diverticulitis. No free air o r free fluid. Nonobstructive bowel pattern. Colonic diverticulosis without evidence for diverticuliti s. IMPRESSION: 1. Mildly enlarged ileocolic lymph nodes, likely reactive. 2: Hepatic steatosis. Reviewed, dictated and finalized at location A. [employer]
[2021-07-24 16:03] VITALS: BP 138/85; PULSE 122; RESP 18; TEMP 37.3; O2SAT 99
--- NOTE | 2021-07-24 18:04 | ED.GENADULT ---
HPI - General Adult General Chief complaint: Abdominal Pain Stated complaint: abd pain Time Seen by Provider: 07/24/21 17:56 Source: patient and RN notes reviewed History of Present Illness HPI narrative: Patient is a 20 y/o female complaining of right sided abdominal pain starting around 5:00 AM this morning. She describes her pain as sharp and rates it as 7/10. She states that her pain radiates to her back. There is no alleviating or exacerbating factor. She also has some vomiting and diarrhea. Related Data Home Medications Medication Instructions Recorded Confirmed sertraline mg 03/27/21 Allergies Allergy/AdvReac Type Severity Reaction Status Date / Time No Known Allergies Allergy Unknown Verified 07/24/21 17:50 Review of Systems Constitutional: Constitutional: Denies chills, Denies fever(s), Denies headache(s) and Denies weakness Eyes: Eyes: Denies blurry vision ENT: Denies headache(s) and Denies neck pain Cardiovascular: Cardiovascular: Denies chest pain and Denies dyspnea Respiratory: Respiratory: Denies cough and Denies dyspnea Gastrointestinal: Gastrointestinal: Reports abdominal pain, Reports diarrhea, Reports nausea and Reports vomiting Genitourinary: Genitourinary: Denies hematuria and Denies dysuria Musculoskeletal: Musculoskeletal: Denies back pain and Denies neck pain Neurologic: Denies headache(s) and Denies weakness PMFSH Past Medical History Medical History Anxiety Asthma Depression GERD (gastroesophageal reflux disease) High cholesterol Surgical History Surgical History Hx laparoscopic cholecystectomy 02/09/2020 Hx of tonsillectomy Family History Family History Father High cholesterol Grandparent Heart disease Diabetes mellitus Social History Social History Smoking status: Former smoker Tobacco type: e-cigarettes/vaping Smoking end date: 08/06/20 Additional smoking assessment comments: USING FOR 1 YEAR Alcohol intake: current Drinks per week: 2 Substance use: current Substance use type: marijuana Other substance usage details: ONCE/DAY BEFORE BED Last use: 11/07/20 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 Gender identity (if verbalized by the patient): Female Spiritual care concerns: No Exam Const: General: no acute distress and well developed Orientation/consciousness: oriented to person, oriented to place, oriented to time and patient oriented x3 HENMT: Head: normocephalic Ears: external ears normal General nose exam: Normal external nose present Eyes: General: appearance normal, both eyes and all related structures Conjunctivae: conjunctivae normal Neck: Neck: normal visual inspection and full ROM Chest: Chest palpation & inspection: normal inspection of the chest and no tenderness Resp: Effort & Inspection: normal respiratory effort Auscultation: clear to auscultation bilaterally Cardio: Rate: regular rate Rhythm: regular rhythm GI: GI Palp: No abdominal tenderness and Yes Soft to palpation Skin: General skin exam: normal color and turgor normal Neuro: General: oriented to person, oriented to place, oriented to time and patient oriented x3 Cognition (Neuro): normal cognition Extrem: General: normal to inspection, full ROM and no pedal edema Psych: Appearance: grossly normal Mental Status: mental status grossly normal Affect: normal affect Course Vital Signs Vital signs: Vital Signs Temperature 37.3 C 07/24/21 16:03 Pulse Rate 122 H 07/24/21 16:03 Respiratory Rate 18 07/24/21 16:03 Blood Pressure 138/85 07/24/21 16:03 Pulse Oximetry 99 07/24/21 16:03 Temperature 36.4 C 07/24/21 20:49 Pulse Rate 92 07/24/21 20:49 Respiratory Rate 17 07/24/21 20:49 Blood
[2021-07-24 18:22] LABS: Basophils Percent Auto 0.3 % (0.2-1.2); Eosinophils Absolute Auto 0.1 K/mm3 (0-0.3); Eosinophils Percent Auto 0.5 % (0-4.4); Hematocrit 42.8 % (37.0-47.0); Hemoglobin 14.4 g/dL (12.0-15.0); Immature Granulocyte Absolute 0.06 K/mm3 (0.00-0.031); Immature Granulocyte Percent A 0.4 % (0-0.5); Lymphocytes Absolute Auto 2.02 K/mm3 (0.9-3.2); Lymphocytes Percent Auto 14.7 % (18.3-44.2); Mean Corpuscular HGB Conc 33.6 g/dl (32-36); Mean Corpuscular Hemoglobin 30.7 pg (26-34); Mean Corpuscular Volume 91.3 fl (80-100); Mean Platelet Volume 9.8 fl (7.4-10.4); Monocytes Absolute Auto 1.1 K/mm3 (0.1-0.6); Monocytes Percent Auto 8.2 % (2.6-8.5); Neutrophils Absolute Auto 10.4 K/mm3 (1.3-6.7); Neutrophils Percent Auto 75.9 % (45.5-73.1); Platelet Count Result 286 k/mm3 (150-375); Red Blood Count 4.69 M/mm3 (4.2-5.4); Red Cell Distribution Width 12.5 % (11.5-14.5); White Blood Count 13.7 K/mm3 (4.5-10.0)
[2021-07-24 18:27] LABS: Add Urine Microscopic? YES; Appearance Urine Clear (Clear); Bacteria Urine Trace /hpf; Bilirubin Urine Negative (Negative); Blood Urine 1+ (Negative); Color Urine Yellow (Yellow); Glucose Urine UA Negative (Negative); Ketones Urine Negative (Negative); Leukocyte Esterase Ur Negative LEU/UL (Negative); Mucus Urine Heavy /lpf; Nitrate Urine Negative (Negative); Protein Urine Negative (Negative); Specific Grav Ur 1.028 (1.001-1.035); Squamous Epithelial Cell Urine Moderate /hpf (Few); Urobilinogen Urine Negative mg/dL (<2.0)
[2021-07-24 18:33] LABS: Alanine Aminotransferase 34 U/L (4-35); Albumin Level 4.5 g/dL (3.5-5.1); Alkaline Phosphatase 86 U/L (38-126); Anion Gap 9 mmol/L (8-16); Aspartate Amino Transferase 30 U/L (14-36); Bilirubin,Total 0.6 mg/dL (0.2-1.3); Blood Urea Nitrogen 9 mg/dL (7-17); Calcium 8.9 mg/dL (8.4-10.2); Carbon Dioxide 22 mmol/L (22-30); Chloride 103 mmol/L (98-107); Estimated CRCL calculation 137 ml/min; Estimated Glomerular Filt Rate > 60; Glucose 100 mg/dL (65-110); Lipase 22 U/L (23-300); Potassium 3.5 mmol/L (3.4-5.0); Sodium 134 mmol/L (137-145)
[2021-07-24] MEDS: SODIUM CHLORIDE 0.9% IV 1,000 ML 999 ML IV CONT (19:06)
[2021-07-24] MEDS: METOCLOPRAMIDE HCL INJ 10 MG/2 ML VIAL IV PUSH (19:06)
[2021-07-24] MEDS: KETOROLAC 30 MG/ML VIAL (*BKC) IV PUSH (19:06)
[2021-07-24 20:49] VITALS: BP 131/89; PULSE 92; RESP 17; TEMP 36.4; O2SAT 100
== END 2021-07-24 21:08 | disposition home or self-care (01) ==
PROVIDERS: Emergency Provider Emergency Medicine; PCP Family Medicine
DX: K52.9 Noninfective gastroenteritis and colitis, unspecified (principal); F41.9 Anxiety disorder, unspecified; J45.909 Unspecified asthma, uncomplicated; F32.9 Major depressive disorder, single episode, unspecified; K21.9 Gastro-esophageal reflux disease without esophagitis
CPT/HCPCS: 36415; 74177; 80053; 81001; 81025; 83690; 85025; 96361; 96374; 96375; 99284; J1885; J2765; J7030; Q9967

== ENCOUNTER 2021-10-14 10:25 | Emergency (ER) | payer OTHER, SELFPAY ==
--- NOTE | 2021-10-14 10:33 | ED.URI ---
HPI - URI/Sore Throat General Chief Complaint: Upper Respiratory Infection Stated Complaint: SINUS CONGESTION Time Seen by Provider: 10/14/21 10:40 Source: patient, RN notes reviewed and old records reviewed Mode of arrival: ambulatory Limitations: no limitations History of Present Illness HPI Narrative: 20-year-old female who presents to [facility] with complaints of sinus congestion with sinus drainage that is green-tinged since Sunday. Patient states that she has some sinus pressure in her cheeks and around upper nose, has been taking some [facility] sinus medication without relief of her symptoms. Patient states that she had a sore throat initially but now just feel stuffed up with sinus drainage and pressure and occasional cough with no dyspnea or any wheezing noted. Patient denies any fevers chills or sweats, no body aches did take home COVID test this morning which patient states was negative. Patient has not had COVID vaccinations but did have flu shot this year. MD elicited complaint: cough, rhinorrhea, nasal congestion and sinus pain Pertinent past history: seasonal allergies Onset (ago): day(s) (3) Description of mucous: clear and green Able to tolerate fluids by mouth: Yes Exacerbating factors: nothing Relieving factors: nothing Associated symptoms: rhinorrhea, nasal congestion, sore throat and cough Treatments prior to arrival: cold medicine Related Data Home Medications Medication Instructions Recorded Confirmed fluticasone propionate 50 mcg INTRANASAL PRN PRN 10/14/21 10/14/21 Allergies Allergy/AdvReac Type Severity Reaction Status Date / Time No Known Allergies Allergy Unknown Verified 10/14/21 10:36 Review of Systems Review of Systems: CONSTITUTIONAL: Denies fever, chills, or sweats. EYES: Denies visual changes, redness, or discharge. ENT: Positive rhinorrhea, congestion, sore throat, right otalgia. CARDIOVASCULAR: Denies chest pain, palpitations, or edema. RESPIRATORY: Positive for cough denies dyspnea. GASTROINTESTINAL: Denies abdominal pain, nausea, vomiting, or diarrhea. GENITOURINARY: Denies dysuria or hematuria. SKIN: Denies rash or itching. MUSCULOSKELETAL: Denies back pain, joint pain, or myalgia. NEUROLOGIC: Denies headache, numbness, or weakness. PSYCHIATRIC: Positive history of anxiety or depression. All systems reviewed & are unremarkable except as noted in HPI and below PMFSH Past Medical History Medical History Anxiety Asthma Depression GERD (gastroesophageal reflux disease) High cholesterol Surgical History Surgical History Hx laparoscopic cholecystectomy 02/09/2020 Hx of tonsillectomy Family History Family History Father High cholesterol Grandparent Heart disease Diabetes mellitus Social History Social History Smoking status: Former smoker Tobacco type: e-cigarettes/vaping Smoking end date: 08/06/20 Additional smoking assessment comments: USING FOR 1 YEAR Alcohol intake: current Drinks per week: 2 Substance use: current Substance use type: marijuana Other substance usage details: ONCE/DAY BEFORE BED Last use: 11/07/20 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 There is no relevant family history pertinent to the presenting complaint Exam Narrative: GENERAL: Ill-appearing, well-nourished, and in no acute distress. HEAD: Normocephalic, atraumatic. EYES: PERRLA and EOMI. ENT: Nares red with clear rhinorrhea no epistaxis. Mucous membranes moist.TM's normal with good light reflex, throat mild redness with no lesions or ex
[2021-10-14 10:35] VITALS: BP 148/94; PULSE 101; RESP 16; TEMP 36.9; O2SAT 100
[2021-10-14 10:36] VITALS: BP 148/94; PULSE 101; RESP 16; TEMP 36.9; O2SAT 100
== END 2021-10-14 10:52 | disposition home or self-care (01) ==
PROVIDERS: Emergency Provider Registered Nurse; PCP Family Medicine
DX: J06.9 Acute upper respiratory infection, unspecified (principal); F17.290 Nicotine dependence, other tobacco product, uncomplicated; F12.90 Cannabis use, unspecified, uncomplicated; J45.909 Unspecified asthma, uncomplicated; F41.9 Anxiety disorder, unspecified; F32.A Depression, unspecified; K21.9 Gastro-esophageal reflux disease without esophagitis; E78.00 Pure hypercholesterolemia, unspecified
CPT/HCPCS: 99213; G0463

== ENCOUNTER 2021-11-08 17:33 | Emergency (ER) | payer OTHER, SELFPAY ==
--- NOTE | ~2021-11-08 | XR_ITS ---
EXAM: XR ankle LT min 3V HISTORY: PAIN medial Lt ankle after fall this P.M. COMPARISON: None available FINDINGS: Normal mineralization. No dislocation. Subcortical lucency in the medial aspect of the caro ar dome, which may reflect an osteochondral defect and can be a source of chronic pain. Osseous irreg ularity along the capsular margin of the ankle joint as can be seen with capsular avulsion (alternati vely this may represent degenerative spur formation). Small volume ankle joint fluid. No other potent ial acute fracture detected. Minimal plantar enthesopathy. IMPRESSION: Possible left ankle joint capsular avulsion, correlate with tenderness along the anterior joint line. Left ankle effusion. Reviewed, dictated and finalized at location K. IMPRESSION: Possible left ankle joint capsular avulsion, correlate with tenderness along th e anterior joint line. Left ankle effusion.
[2021-11-08 17:38] VITALS: BP 141/88; PULSE 112; RESP 12; TEMP 36.7; O2SAT 99
--- NOTE | 2021-11-08 18:34 | ED.LOWEXIN ---
HPI - Extremity Injury (Lower) General Chief Complaint: Extremity Injury, Lower Stated Complaint: L ANKLE INJURY Time Seen by Provider: 11/08/21 18:04 Source: patient and RN notes reviewed Mode of arrival: ambulatory Limitations: no limitations History of Present Illness HPI Narrative: Patient presents today complaining of generalized left ankle pain after she twisted her ankle while taking out the trash 3 hours prior to arrival. She has been nonambulatory since the injury. Denies numbness or tingling. She currently rates her pain 8/10 and has applied ice and taken to ibuprofen without relief. MD complaint: ankle injury Related Data Home Medications Medication Instructions Recorded Confirmed fluticasone propionate 50 2 spray INTRANASAL BID g 10/20/21 10/20/21 mcg/actuation nasal spray,suspension Allergies Allergy/AdvReac Type Severity Reaction Status Date / Time No Known Allergies Allergy Unknown Verified 10/20/21 13:00 Review of Systems Review of Systems: CONSTITUTIONAL: Denies body aches, fever, chills, or sweats. EYES: Denies visual changes, redness, or discharge. ENT: Denies rhinorrhea, congestion, sore throat, or otalgia. CARDIOVASCULAR: Denies chest pain, palpitations, or edema. RESPIRATORY: Denies cough or dyspnea. GASTROINTESTINAL: Denies abdominal pain, nausea, vomiting, or diarrhea. GENITOURINARY: Denies dysuria or hematuria. SKIN: Denies rash, itching, or wounds. MUSCULOSKELETAL: Denies back pain, or myalgia. + left ankle injury. NEUROLOGIC: Denies headache, numbness, tingling, or weakness. PSYCH: Denies depression or anxiety. [facility] Past Medical History Medical History Anxiety Asthma Depression GERD (gastroesophageal reflux disease) High cholesterol Surgical History Surgical History Hx laparoscopic cholecystectomy 02/09/2020 Hx of tonsillectomy Family History Family History Father High cholesterol Grandparent Heart disease Diabetes mellitus Social History Social History Smoking status: Former smoker Tobacco type: e-cigarettes/vaping Smoking end date: 08/06/20 Additional smoking assessment comments: USING FOR 1 YEAR Alcohol intake: current Drinks per week: 2 Substance use: current Substance use type: marijuana Other substance usage details: ONCE/DAY BEFORE BED Last use: 11/07/20 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 Please see nursing chart for further information. There is no relevant family history pertinent to the presenting complaint Exam Narrative: GENERAL: Well-appearing, well-nourished, and in no acute distress. HEAD: Normocephalic, atraumatic. EYES: EOMI. No redness or drainage. Conjunctivae normal. ENT: Mucous membranes pink and moist. NECK: Normal AROM. CHEST: No respiratory distress. EXTREMITIES: Left ankle: Tenderness and mild edema to the lateral malleolus. No tenderness medially or anteriorly. No other edema noted. No tenderness to the foot. Distal sensation intact. Capillary refill normal. Pedal pulse normal. Full range of motion of the ankle. With flexion, patient complains of shooting pain up the anterior ankle to the anterior lower leg. SKIN: Warm, dry, no rash. Capillary refill normal. Normal skin turgor. NEURO: No focal deficits. Alert and oriented x3. Gait steady. PSYCH: Normal affect. No signs of depression or anxiety. Course Course Level of Care: Express Care Visit Vital Signs Vital signs: Vital Signs Temperature
== END 2021-11-08 18:47 | disposition home or self-care (01) ==
PROVIDERS: Emergency Provider Nurse Practitioner; PCP Family Medicine
DX: S93.402A Sprain of unspecified ligament of left ankle, initial encounter (principal); X50.9XXA Other and unspecified overexertion or strenuous movements or postures, initial encounter; J45.909 Unspecified asthma, uncomplicated; K21.9 Gastro-esophageal reflux disease without esophagitis; E78.00 Pure hypercholesterolemia, unspecified
CPT/HCPCS: 73610; 99213; G0463

== ENCOUNTER 2023-06-21 18:35 | Emergency (ER) | payer OTHER, SELFPAY ==
--- NOTE | ~2023-06-21 | CT_ITS ---
EXAMINATION: CT soft tissue neck chest wo DATE: 06/21/2023 22:05 INDICATION: TECHNIQUE: Computed tomography (CT) of the neck was performed with 75 mL Omnipaque-350 intravenous co ntrast. The dose-length product was 1373.95 mGy-cm. COMPARISON: None FINDINGS: Orbits are normal aside from a likely piercing in the soft tissues along the superolateral left orbit al rim. The paranasal sinuses are clear. Visualized sinuses and mastoid air cells are well aerated. S ubmandibular and parotid glands are symmetric. Thyroid gland is unremarkable. There are scattered nor mal-sized lymph nodes in the neck, no lymphadenopathy. No masses identified. Airway is unremarkable. Superior mediastinum is unremarkable. Aside from the piercing at the left orbit and additional pierc ing at the left earlobe, no other foreign bodies identified. Lung apices are normal. Bones are unrem arkable. IMPRESSION: 1. Soft tissues of the neck are unremarkable with no evident foreign bodies. Reviewed, dictated and finalized at location A. RVENTIONAL NURSE
[2023-06-21 19:21] VITALS: BP 153/103; PULSE 109; RESP 16; TEMP 36.7; O2SAT 100
--- NOTE | 2023-06-21 21:49 | ED.GENADULT ---
HPI - General Adult General Chief complaint: Skin/Abscess/Foreign Body Stated complaint: stuck in throat Time Seen by Provider: 06/21/23 21:18 History of Present Illness HPI narrative: This is a 22-year-old female, with significant past medical history, who presents to the emergency department with foreign body sensation throat. The patient states earlier this evening, she was eating strawberries quickly, when while chewing she has had the sensation of a object stuck in throat. She states she coughed multiple times and induced vomiting once improvement. She denies difficulty breathing or difficulty swallowing. She has no other complaints at this time. Related Data Home Medications Medication Instructions Recorded Confirmed fluticasone propionate 50 2 spray intranasal BID Allergic 10/20/21 10/20/21 mcg/actuation nasal Symptoms spray,suspension Allergies Allergy/AdvReac Type Severity Reaction Status Date / Time No Known Allergies Allergy Unknown Verified 10/20/21 13:00 Review of Systems Review of Systems: CONSTITUTIONAL: Denies fever, chills, or sweats. ENT: Foreign body sensation in throat denies rhinorrhea, congestion, sore throat, or otalgia. CARDIOVASCULAR: Denies chest pain, palpitations, or edema. RESPIRATORY: Denies cough or dyspnea. GASTROINTESTINAL: Denies abdominal pain, nausea, vomiting, or diarrhea. MUSCULOSKELETAL: Denies back pain, joint pain, or myalgia. NEUROLOGIC: Denies headache, numbness, dizziness, or weakness. PSYCHIATRIC: Denies anxiety or depression. [facility] Past Medical History Medical History Anxiety Asthma Depression GERD (gastroesophageal reflux disease) High cholesterol Surgical History Surgical History Hx laparoscopic cholecystectomy 02/09/2020 Hx of tonsillectomy Family History Family History Father High cholesterol Grandparent Heart disease Diabetes mellitus Social History Social History Smoking status: Former smoker Tobacco type: e-cigarettes/vaping Smoking end date: 08/06/20 Additional smoking assessment comments: USING FOR 1 YEAR Alcohol intake: current Drinks per week: 2 Substance use: current Substance use type: marijuana Other substance usage details: ONCE/DAY BEFORE BED Last use: 11/07/20 Living arrangements: with family Occupation/Education: occupation 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 HEAD: Normocephalic, atraumatic. EYES: PERRLA and EOMI. ENT: Nares clear, no rhinorrhea or epistaxis. Mucous membranes moist. Oropharynx without tonsillar hypertrophy exudate or other lesions. No obvious foreign body in the posterior oropharynx NECK: Supple. No stridor. No carotid bruits or JVD CHEST: Clear to auscultation. No respiratory distress. No wheezes rales or rhonchi HEART: Regular rate and rhythm. No murmur heard. Normal peripheral pulses. ABDOMEN: Soft, nontender, nondistended, normal active bowel sounds. NEURO: No focal deficits. Alert and oriented x3. PSYCH: Normal mood and affect. Course Course Emergency Course: 23:12 - Equipment is not available to perform flexible nasopharyngoscopy in the ED. CT of the neck and chest not concerning for retained foreign object. I discussed these findings with the patient, who is reassured. Will discharge with recommendation for primary care follow-up. Discussed return and emergency precautions including signs/symptoms of airway compromise. The patient voiced understanding and is comfortable with the plan. All questions answered to her satisfaction. Vital Signs Vital
[2023-06-21 22:36] VITALS: PULSE 98; RESP 18; O2SAT 99
== END 2023-06-21 23:16 | disposition home or self-care (01) ==
PROVIDERS: Emergency Provider Preventive Medicine Aerospace Medicine; PCP Family Medicine
DX: F45.8 Other somatoform disorders (principal); J45.909 Unspecified asthma, uncomplicated; E78.00 Pure hypercholesterolemia, unspecified; K21.9 Gastro-esophageal reflux disease without esophagitis; Z87.891 Personal history of nicotine dependence; Z90.49 Acquired absence of other specified parts of digestive tract
CPT/HCPCS: 70490; 71250; 99284